=== PATIENT | female | born 1945 | race Caucasian/White ===

== ENCOUNTER 2020-10-20 16:22 | Inpatient (IN) | payer MEDICARE, OTHER ==
[~2020-10-20] VITALS: Ht 167.6 cm; Wt 65.8 kg
[2020-10-20 16:29] VITALS: BP 158/88
[2020-10-20 17:00] LABS: ABSOLUTE EOSINOPHILS 0.1 thou/uL (0.0-0.7); ABSOLUTE LYMPHOCYTES 1.5 thou/uL (0.8-5.3); ABSOLUTE MONOCYTES 0.3 thou/uL (0.0-1.2); ABSOLUTE NEUTROPHILS 3.5 thou/uL (1.6-8.1); BASOPHILS 0.6 %; EOSINOPHILS 1.3 %; HEMOGLOBIN 14.4 gm/dL (12.0-15.0); LYMPHOCYTES 28.1 %; MCH 31.7 pg (26.0-34.0); MCHC 33.5 g/dL (28.0-37.0); MCV 94.4 fL (80.0-100.0); MONOCYTES 6.3 %; MPV 7.3 fl. (7.2-11.1); NUCLEATED RBCS 0 /100WBC; PLATELET COUNT* 232 thou/uL (150-400); POLYS 63.7 %; RBC 4.55 mil/uL (4.20-5.00); RDW-CV 13.6 % (10.5-14.5); WBC 5.5 thou/uL (4.0-11.0)
[2020-10-20 17:07] LABS: CALCIUM 9.1 mg/dL (8.5-10.1); CREATININE 0.8 mg/dL (0.6-1.3); POTASSIUM 3.8 mmol/L (3.5-5.1)
[2020-10-20 17:27] LABS: ALCOHOL 227 mg/dL (<10); SALICYLATE < 2.8 mg/dL (2.8-20.0)
[2020-10-20 17:28] LABS: ACETAMINOPHEN < 2 ug/mL (10-30)
[2020-10-20 21:50] VITALS: BP 136/75
[2020-10-20 23:38] VITALS: BP 118/72
[2020-10-21 04:16] VITALS: BP 119/59
[2020-10-21 09:04] VITALS: BP 126/95
[2020-10-21 11:34] LABS: URINE BILIRUBIN NEGATIVE (Negative); URINE BLOOD TRACE (Negative); URINE CLARITY CLEAR; URINE COLOR YELLOW; URINE GLUCOSE-RANDOM NEGATIVE (Negative); URINE KETONES 1+ (Negative); URINE LEUKOCYTES NEGATIVE (Negative); URINE NITRITE NEGATIVE (Negative); URINE PROTEIN TRACE (Negative); URINE SPECIFIC GRAVITY >= 1.030 (1.005-1.030); URINE UROBILINOGEN 0.2 E.U./dl (0.2-1.0)
[2020-10-21 11:39] LABS: AMP/METHAMP Negative (Negative); BARBITURATES Negative (Negative); BENZODIAZEPINES Negative (Negative); COCAINE Negative (Negative); METHADONE Negative (Negative); OPIATES Negative (Negative); PCP Negative (Negative); THC Negative (Negative)
[2020-10-21 16:00] VITALS: BP 153/89
[2020-10-21 20:00] VITALS: BP 145/84
[2020-10-22 01:30] VITALS: BP 145/92
[2020-10-22 02:14] VITALS: BP 128/76
[2020-10-22 04:56] LABS: HEMATOCRIT 39.6 % (37.0-47.0); HEMOGLOBIN 13.5 gm/dL (12.0-15.0); MCH 32.2 pg (26.0-34.0); MCV 94.7 fL (80.0-100.0); MPV 7.8 fl. (7.2-11.1); RBC 4.18 mil/uL (4.20-5.00); RDW-CV 13.5 % (10.5-14.5); WBC 4.3 thou/uL (4.0-11.0)
[2020-10-22 05:14] LABS: ALBUMIN 3.4 g/dL (3.4-5.0); CALCIUM 8.6 mg/dL (8.5-10.1); CREATININE 0.8 mg/dL (0.6-1.3); MAGNESIUM 2.1 mg/dL (1.8-2.4); POTASSIUM 3.7 mmol/L (3.5-5.1); TOTAL BILIRUBIN 0.7 mg/dL (<0.1-1.0); TOTAL PROTEIN 6.2 g/dL (6.4-8.2)
[2020-10-22 08:32] VITALS: BP 134/81
[2020-10-22 16:00] VITALS: BP 162/95
[2020-10-23 08:00] VITALS: BP 128/85
[2020-10-23 16:16] VITALS: BP 159/89
[2020-11-07] MEDS ORDERED: SEROQUEL 25 MG25 M1 PO (10:54)
[2020-11-07] MEDS ORDERED: SEROQUEL 100 M100 M1 PO (10:54)
[2020-11-07] MEDS ORDERED: PEPCID20 MG PO (10:54)
[2020-11-07] MEDS ORDERED: VITAMIN B-12500 MCG PO (10:55)
[2020-11-07] MEDS ORDERED: FOLIC ACID1 MG PO (10:55)
[2020-11-07] MEDS ORDERED: PRENATAL PO (10:56)
== END 2020-10-23 17:25 | DRG 689 ==
LOC: M.ERS 16:22 → M.TBA-ER 17:49 → M.2W 17:49
PROVIDERS: Emergency Medicine; ADMIT Internal Medicine; ATTEND Internal Medicine
DX: N39.0 Urinary tract infection, site not specified (principal); G92 Toxic encephalopathy; F10.27 Alcohol dependence with alcohol-induced persisting dementia; R65.10 Systemic inflammatory response syndrome (SIRS) of non-infectious origin without acute organ dysfunction; F10.221 Alcohol dependence with intoxication delirium; Z20.822 Contact with and (suspected) exposure to COVID-19; B96.89 Other specified bacterial agents as the cause of diseases classified elsewhere; Z79.899 Other long term (current) drug therapy